=== PATIENT | female | born 1975 | race African-American/Black ===

== ENCOUNTER 2017-06-23 16:41 | Emergency (ER) | payer OTHER | END 2017-06-23 19:07 | disposition home or self-care (01) | LOC: ER 16:41 | DX: S13.4XXA Sprain of ligaments of cervical spine, initial encounter (principal); R51 Headache; V43.52XA Car driver injured in collision with other type car in traffic accident, initial encounter; Y93.I9 Activity, other involving external motion; Y92.410 Unspecified street and highway as the place of occurrence of the external cause; Y99.8 Other external cause status | CPT/HCPCS: 70450; 72125; 99284-25 ==